=== PATIENT | male | born 1940 | race African-American/Black ===

== ENCOUNTER 2022-04-08 14:37 | Outpatient (REF) | payer MEDICARE, SELFPAY ==
[2022-04-08 16:27] LABS: Vitamin B12 564 pg/mL (200-900)
== END 2022-04-08 14:38 | disposition home or self-care (01) ==
LOC: HO.LAB 14:37
PROVIDERS: Visit Provider Psychiatry & Neurology Neurology
DX: G30.9 Alzheimer's disease, unspecified (principal)
CPT/HCPCS: 36415; 82607